=== PATIENT | female | born 1940 | race Caucasian/White ===

== ENCOUNTER 2021-05-20 12:10 | Inpatient (IN) | payer OTHER, MEDICARE ==
[2021-05-20 13:16] LABS: EOS % 1.9 % (0-4.5); HEMATOCRIT 33.8 % (32.4-45.2); HEMOGLOBIN 11.4 GM/dl (10.7-15.3); LYMPH % 8.9 % (8-40); MCH 31.6 pg (25.7-33.7); MCHC 33.7 g/dl (32.0-36.0); MEAN CELL VOLUME 93.9 fl (80-96); MEAN PLT VOLUME 8.5 fl (7.5-11.1); MONO % 9.2 % (3.8-10.2); PLATELET COUNT 109 10^3/uL (134-434); RBC 3.61 M/mm3 (3.60-5.2); RDW 13.4 % (11.6-15.6); WHITE BLOOD COUNT 5.7 K/mm3 (4.0-10.8)
[2021-05-20 13:19] LABS: INR 2.13 (0.82-1.09); PROTHROMBIN TIME (PATIENT) 22.7 SEC (10.2-13.0)
[2021-05-20 13:24] LABS: BILIRUBIN,TOTAL 1.4 mg/dl (0.2-1); CREATININE 0.7 mg/dl (0.55-1.3); MAGNESIUM 1.8 mg/dL (1.8-2.4); TOT PROT 6.4 g/dl (6.4-8.2)
[2021-05-20] MEDS ORDERED: SODIUM CHLORIDE 0.9% 500 ML INFUS.BAG IV ONE (14:10)
[2021-05-20] MEDS ORDERED: METOPROLOL TARTRATE 25 MG TABLET (FP) PO ONE (15:32)
[2021-05-20 15:37] LABS: EPITHELIAL CELLS FEW /hpf
[2021-05-20] MEDS ORDERED: METOPROLOL TARTRATE 50 MG TABLET (FP) ONE (16:24)
[2021-05-20 17:46] VITALS: BMI 26.8
[2021-05-20] MEDS ORDERED: ALBUTEROL SO4 2.5/IPRATROPIUM 0.5 INH SOL 3 ML VIAL.NEB. NEB PRN (20:24)
[2021-05-20] MEDS ORDERED: FUROSEMIDE 40 MG/4 ML INJECTABLE VIAL IVPUSH ONE (20:31)
[2021-05-20] MEDS: DULoxetine HCL 30 MG CAPSULE.DR PO SCH (21:18)
[2021-05-20] MEDS: ATORVASTATIN CA 10 MG TABLET (FP) PO SCH (21:18)
[2021-05-20] MEDS: APIXABAN 5 MG TABLET PO SCH (21:18)
[2021-05-21] MEDS ORDERED: FUROSEMIDE 40 MG/4 ML INJECTABLE VIAL IVPUSH ONE ×2 (09:21→19:01)
[2021-05-21] MEDS: metoPROLOL SUCCINATE 25 MG TAB.SR.24H (FP) PO SCH (09:38)
[2021-05-21] MEDS: PANTOPRAZOLE 40 MG TABLET PO SCH (09:39)
[2021-05-21] MEDS: APIXABAN 5 MG TABLET PO SCH ×2 (09:39→21:32)
[2021-05-21 15:18] LABS: CALCIUM 9.1 mg/dl (8.5-10); CREATININE 0.9 mg/dl (0.55-1.3)
[2021-05-21] MEDS ORDERED: POTASSIUM CHLORIDE TABS 20 MEQ TABLET.ER (FP) PO ONE (19:01)
[2021-05-21] MEDS: ATORVASTATIN CA 10 MG TABLET (FP) PO SCH (21:32)
[2021-05-21] MEDS: DULoxetine HCL 30 MG CAPSULE.DR PO SCH (21:32)
[2021-05-21] MEDS ORDERED: metoPROLOL SUCCINATE 25 MG TAB.SR.24H (FP) PO SCH (22:00)
[2021-05-22 06:12] VITALS: BP 124/74; PULSE 80; TEMP 98.2
[2021-05-22] MEDS ORDERED: FUROSEMIDE 20 MG TABLET (FP) PO SCH (10:00)
[2021-05-22] MEDS: metoPROLOL SUCCINATE 25 MG TAB.SR.24H (FP) PO SCH (10:26)
[2021-05-22] MEDS: APIXABAN 5 MG TABLET PO SCH (10:26)
[2021-05-22] MEDS: PANTOPRAZOLE 40 MG TABLET PO SCH (10:26)
== END 2021-05-22 13:43 | disposition home or self-care (01) | DRG 293 ==
LOC: FER 12:10 → INTOOBSV 16:24 → FM/S 16:24 → OBSVTOIN 05-21 20:50
PROVIDERS: ADMIT Internal Medicine; ATTEND Internal Medicine
DX: I11.0 Hypertensive heart disease with heart failure (principal); J44.9 Chronic obstructive pulmonary disease, unspecified; I50.33 Acute on chronic diastolic (congestive) heart failure; I48.91 Unspecified atrial fibrillation; E78.5 Hyperlipidemia, unspecified; Z95.0 Presence of cardiac pacemaker
CPT/HCPCS: 36415; 71045-TC-FY; 71046-TC-FY; 80048; 80053; 81003; 81015; 82550; 83735; 83880; 84484; 85025; 85610; 86850; 86900; 86901; 87086; 93005; 93306-TC; 99285-25; C9803; G0378; U0003; U0005